=== PATIENT | male | born 1965 | race Caucasian/White ===

== ENCOUNTER 2017-05-09 17:35 | Emergency (ER) | payer BC ==
--- NOTE | 2017-05-09 19:19 | EDM.PDOC ---
ED HPI GENERAL MEDICAL PROBLEM - General Chief Complaint: General Stated Complaint: PAIN/POSSIBLE BLOOD CLOT LT ARM Time Seen by Provider: 05/09/17 19:10 Source of Information: Reports: Patient History Limitations: Reports: No Limitations - History of Present Illness INITIAL COMMENTS - FREE TEXT/NARRATIVE: HISTORY AND PHYSICAL: History of present illness: Patient presents to the emergency room for complaints of left arm pain. He had a PICC line placed in his left upper arm 3 weeks ago to receive daily Rocephin infusions for Klebsiella Pneumoniae bacteremia per patient report. He's been following with an [id number] physician and is scheduled to establish care with Dr. Sharpe on May 12. Until this point patient has been receiving IV Rocephin through an IV drip. Yesterday was the first time the medication was ordered to be IV push. Patient's is administering the medication for him. He complained of a burning sensation in his arm as the Rocephin was being pushed and for the 2 hours afterwards. Denies any swelling, redness and continued pain to his arm. He's had no fever or chills. No chest pain shortness of breath or difficulty breathing. History of factor V Leiden deficiency in an aunt. Patient has not been tested. Review of systems: As per history of present illness and below otherwise all systems reviewed and negative. Past medical history: As per history of present illness and as reviewed below otherwise noncontributory. Surgical history: As per history of present illness and as reviewed below otherwise noncontributory. Social history: No reported history of drug or alcohol abuse. Family history: As per history of present illness and as reviewed below otherwise noncontributory. Physical exam: HEENT: Atraumatic, normocephalic. Extremities: PICC line to Left inner bicep area. Surrounding tissues are not erythematous or swollen. No tenderness with palpation. No tenderness with palpation of the shoulder elbow and wrist joints. Radial pulses 2+ and are equal bilaterally. Neurovascular unremarkable. Neuro: Awake, alert, oriented. Motor and sensory unremarkable throughout. Exam nonfocal. Impression: [PICC line] Plan: [Discussed with patient that a change in the sensation as well as some discomfort would not be unexpected with pushing Rocephin IV. Recommend patient continue to monitor. Discussed signs and symptoms of blood clot, as well as the importance of regular follow-up with PCP. He is in agreement with today's plan. Reassurance is given. All the questions are answered and concerns are addressed. ] Definitive disposition and diagnosis as appropriate pending reevaluation and review of above. - Related Data Allergies Allergy/AdvReac Type Severity Reaction Status Date / Time No Known Allergies Allergy Verified 02/21/15 11:40 Home Meds: Home Meds cefTRIAXone [Rocephin] 2 gm IVPUSH Q24H 05/09/17 [History] Past Medical History - Infectious Disease History Infectious Disease History: Reports: Chicken Pox, Measles, Mumps - Past Surgical History GI Surgical History: Reports: Other (See Below) Other GI Surgeries/Procedures: Drainage of abcess on liver. Other Musculoskeletal Surgeries/Procedures:: left ankle surgery Social & Family History - Tobacco Use Smoking Status *Q: Former Smoker Years of Tobacco use: 22 Used Tobacco, but Quit: Yes Month Tobacco Last Used: Janurary Tobacco Use Comment: Pt reports quitting smoking 5 years ago. - Caffeine Use Caffeine Use: Reports: Coffee - Alcohol Use Days Per Week of Alcohol Use: 0 - Recreational Drug Use Recreational Drug Use: No ED ROS GENERAL - Review of Systems Review Of Systems: ROS reveals no pertinent complaints other than HPI. ED EXAM, GENERAL - Physical Exam Exam: See Below Course - Vital Signs Last Recorded V/S: Last Vital Signs Temp 98.5 F 05/09/17 17:47 Pulse 61 05/09/17 17:47 Resp 18 05/09/17 17:47 BP 139/86 05/09/17 17:47 Pulse Ox 97 05/09/17 17:47 Departure - Departure Time of Disposition: 21:30 Disposition: Home, Self-Care 01 Condition: Good Clinical Impression: Left arm pain - Discharge Information Instructions: PICC Home Guide Referrals: Harris Sharpe MD [Primary Care Provider] - Forms: ED Department Discharge Additional Instructions: The following information is given to patients seen in the emergency department who are being discharged to home. This information is to outline your options for follow-up care. We provide all patients seen in our emergency department with a follow-up referral. The need for follow-up, as well as the timing and circumstances, are variable depending upon the specifics of your emergency department visit. If you don't have a primary care physician on staff, we will provide you with a referral. We always advise you to contact your personal physician following an emergency department visit to inform them of the circumstance of the visit and for follow-up with them and/or the need for any referrals to a consulting specialist. The emergency department will also refer you to a specialist when appropriate. This referral assures that you have the opportunity for follow-up care with a specialist. All of these measure are taken in an effort to provide you with optimal care, which includes your follow-up. Under all circumstances we always encourage you to contact your private physician who remains a resource for coordinating your care. When calling for follow-up care, please make the office aware that this follow-up is from your recent emergency room visit. If for any reason you are refused follow-up, please contact the [facility] emergency department at and asked to speak to the emergency department charge nurse. [address] [address] Follow-up with Dr. Sharpe as you have scheduled for May 12. Continue IV Rocephin. Return to ER as needed as discussed.
[2017-05-09 21:39] VITALS: BP 133/86
== END 2017-05-09 19:32 | disposition home or self-care (01) ==
LOC: MW.ED 17:35
DX: M79.602 Pain in left arm (principal); Z87.891 Personal history of nicotine dependence
CPT/HCPCS: 99282